=== PATIENT | male | born 1990 | race Caucasian/White ===

== ENCOUNTER 2018-02-17 14:57 | Emergency (ER) | payer MEDICAID ==
[~2018-02-17] VITALS: Ht 167.6 cm; Wt 81.2 kg
[2018-02-17 15:22] VITALS: BP 134/77
--- NOTE | 2018-02-17 15:27 | NUR ---
pt to lobby awaiting available bed. gcs=15 with steady gait. Addendum: 02/17/18 at 1927 by [email or web address] pat painter procedure, stiches 5 cm laceration
[2018-02-17] MEDS ORDERED: HYDROcodone/APAP 7.5/325 MG 1 TAB PO ONE (17:40)
--- NOTE | 2018-02-17 18:30 | NUR ---
patient came into ER with laceration to the right wrist. pt states that a whitewasher fell and cut him in the hand . patient has a laceration about 5 cm. patient has no allergies and no medication history. patient recieved a tdap and pain meication. pain is a 10/10.
[2018-02-17] MEDS ORDERED: LIDOCAINE 1% 500 MG/50 ML VIAL INJ SCH (18:55)
--- NOTE | 2018-02-17 19:00 | NUR ---
pa is with pt. doing stictches procedure
[2018-02-17] MEDS ORDERED: LIDOCAINE MPF 1% - **ER/OR** 10 ML ONE ×2 (19:03→19:07)
[2018-02-17] MEDS ORDERED: BACITRACIN OINT 500 UNITS/GM PKT TP ONE (19:18)
--- NOTE | 2018-02-17 19:30 | NUR ---
GAVE REPORT TO ESTEBAN CASTRO
--- NOTE | 2018-02-17 19:31 | NUR ---
RECEIVED REPORT FROM AM NURSE. PA FINISHING PROCEDURE AT BEDSIDE.
[2018-02-17 19:58] VITALS: BP 126/78
--- NOTE | 2018-02-17 19:58 | NUR ---
Patient discharged with v/s stable. Written and verbal after care instructions given and explained. Patient alert, oriented and verbalized understanding of instructions. Ambulatory with steady gait. All questions addressed prior to discharge. ID band removed. Patient advised to follow up with PMD. Rx of IBUPROFEN, AND BACITRACIN given. Patient educated on indication of medication including possible reaction and side effects. Opportunity to ask questions provided and answered.
== END 2018-02-17 19:58 | disposition home or self-care (01) ==
LOC: MED 14:57
DX: S61.511A Laceration without foreign body of right wrist, initial encounter (principal); W20.8XXA Other cause of strike by thrown, projected or falling object, initial encounter; Y93.G1 Activity, food preparation and clean up; Y99.8 Other external cause status; Y92.89 Other specified places as the place of occurrence of the external cause
CPT/HCPCS: 12032; 73110; 90471; 90715; 99284; J2001; Q0092